=== PATIENT | male | born 1990 | race Caucasian/White ===

== ENCOUNTER 2020-05-08 02:34 | Emergency (ER) | payer BC ==
[~2020-05-08] VITALS: Ht 165.1 cm; Wt 63.5 kg
[2020-05-08 02:36] VITALS: Ht 165.1 cm; Wt 63.5 kg
[2020-05-08 03:22] LABS: BASOPHIL % 0.1 % (0-2); PLATELET COUNT 212 x10^3mcL (130-400); RED CELL DISTRIBUTION WIDTH 12.9 % (11.5-14.5)
[2020-05-08 04:13] LABS: CALCIUM 8.2 mg/dL (8.5-10.1); CARBON DIOXIDE 26.9 mmol/L (21-32); CHLORIDE SERUM 103 mmol/L (98-107); GFR1 > 60 mL/min; GLUCOSE SERUM 96 mg/dL (74-106); POTASSIUM SERUM 3.9 mmol/L (3.5-5.1); SODIUM SERUM 139 mmol/L (136-145)
[2020-05-08 04:18] LABS: ALBUMIN 3.9 g/dL (3.4-5.0); ALKALINE PHOSPHATASE 72 U/L (46-116); ALT/SGPT 38 U/L (16-63); AST/SGOT 17 U/L (15-37); BILIRUBIN TOTAL 0.16 mg/dL (0.20-1.00); TOTAL PROTEIN, SERUM 7.1 g/dL (6.4-8.2)
[2020-05-08 05:05] VITALS: BP 115/64
== END 2020-05-08 05:06 | disposition home or self-care (01) ==
LOC: ED 02:34
PROVIDERS: Emergency Medicine
DX: I47.1 Supraventricular tachycardia (principal)
CPT/HCPCS: 83880; J2060; J2405; J7030